=== PATIENT | male | born 1960 | race Caucasian/White ===

== ENCOUNTER 2019-01-02 14:57 | Outpatient (CLI) | payer BC ==
--- NOTE | 2019-01-02 15:45 | RAD ---
RIGHT FOOT THREE VIEWS: 01/02/19 HISTORY: Right foot pain. Plantar foot pain. FINDINGS: No fracture, dislocation, or bony destruction is seen. Small plantar calcaneal spur is present. Vascu lar calcifications are noted. IMPRESSION: No acute process. POS: [facility]
== END 2019-01-02 14:58 | disposition home or self-care (01) ==
LOC: SCSRAD 14:57
PROVIDERS: ATTEND Nurse Practitioner Family
DX: M79.671 Pain in right foot (principal)